=== PATIENT | male | born 1995 | race Hispanic/Latino ===

== ENCOUNTER 2025-03-25 06:31 | Day surgery (SDC) | payer OTHER ==
[~2025-03-25] VITALS: Ht 182.9 cm; Wt 108.9 kg
[2025-03-25] VITALS (8 sets, daily range): BP systolic 110–141; BP diastolic 57–84; PULSE 50–60; RESP 15–18; TEMP 97.1–97.7
[2025-03-25] MEDS ORDERED: FAMO40TA7 PO (07:05)
[2025-03-25] MEDS ORDERED: ALBU18HF7 IH (07:05)
[2025-03-25] MEDS ORDERED: LID5O TP (07:05)
[2025-03-25] MEDS ORDERED: SUCR1TAB2 PO (07:05)
[2025-03-25] MEDS ORDERED: OMEP40CA21 PO (07:05)
[2025-03-25] MEDS ORDERED: BUSP10TA3 PO (07:05)
[2025-03-25] MEDS ORDERED: BUPR75TA8 PO (07:05)
[2025-03-25] MEDS ORDERED: AZEL137S11 NS (07:05)
[2025-03-25] MEDS: 0.9%NACL 1000ML 1,000 ML IV ONE (07:14)
[2025-03-25] MEDS ORDERED: proPOFol 10 MG/ML 20ML VIAL IV ONE ×3 (10:03→10:17)
[2025-03-25] MEDS ORDERED: SUCCINYLCHOLINE CHLORIDE 20 MG/ML 10 ML VIAL ONE (10:04)
[2025-03-25] MEDS ORDERED: ATROPINE 1MG SYG IVP ONE (10:05)
[2025-03-25] MEDS ORDERED: LIDOCAINE HCL 400MG/20ML VIAL ONE (10:07)
--- NOTE | 2025-03-25 11:36 | NUR ---
Full and complete discharge instructions given to Patient and Family both verbally and in writing. Explained GI procedure precautions and follow up. All questions answered. PIV removed with catheter tip intact. Home with Family W/C to POV.
== END 2025-03-25 11:25 | disposition home or self-care (01) ==
LOC: ENDO 06:31 → DAH 06:31 → ENDO 11:25
PROVIDERS: ATTEND Surgery
DX: K30 Functional dyspepsia (principal); K44.9 Diaphragmatic hernia without obstruction or gangrene; K31.89 Other diseases of stomach and duodenum; E66.01 Morbid (severe) obesity due to excess calories; R14.0 Abdominal distension (gaseous); K80.20 Calculus of gallbladder without cholecystitis without obstruction; E78.00 Pure hypercholesterolemia, unspecified; Z98.890 Other specified postprocedural states; Z68.33 Body mass index [BMI] 33.0-33.9, adult
CPT/HCPCS: 43249; 43239; J3490; J0330; J7030; J0461; J2704 ×3; C1726; A4620; A4215 ×2; A4223; A4222; A4221; A4663; A4606